=== PATIENT | female | born 1945 | race Caucasian/White ===

== ENCOUNTER 2019-02-20 14:43 | Inpatient (IN) | payer OTHER ==
[2019-02-20 15:42] LABS: PLATELET COUNT 347 10^3/uL (150-400)
--- NOTE | 2019-02-20 15:48 | EDPHY ---
H & P Stated Complaint: constipation Time Seen by Provider: 02/20/19 15:09 HPI/ROS: CHIEF COMPLAINT: Abdominal pain, vomiting HISTORY OF PRESENT ILLNESS: 73-year-old female presents from [facility]. Referred to the emergency department as the patient had vomiting x3 today and seemed to have abdominal discomfort palpation. No history of fevers. No history of diarrhea. Patient in fact has been constipated recently and caregivers have been increasing the Senokot that she has received. No other history is available from the patient herself. Son at bedside reports no history of abdominal surgeries, no history of diabetes , high blood pressure, kidney problems, liver problems, or or other chronic medical conditions except possibility of hypothyroidism REVIEW OF SYSTEMS: Review of systems is unobtainable from this patient because of altered mentation. PAST MEDICAL HISTORY: Dementia, hypothyroid, anxiety SOCIAL HISTORY: Lives at [facility]. Here with son. VITAL SIGNS Reviewed by me. GENERAL: Elderly female, slightly pale, thin. No obvious distress. HEENT: Atraumatic. Eyes: No icterus, no injection. Mouth: Dry mucous membranes. No erythema or lesions. Neck: supple with no adenopathy. LUNGS: Clear to auscultation bilaterally, no wheezes, rhonchi or rales. CARDIAC: Regular rate and rhythm, no rubs, murmurs or gallops. ABDOMEN: Soft, apparent tenderness in the epigastrium and suprapubic region. No distension. Normal bowel sounds. BACK: No CVA tenderness. EXTREMITIES: No trauma. No edema. Range of motion is normal throughout. NEURO: Alert, follows some simple commands, consolable with the son. Grossly nonfocal. SKIN: Warm and dry, no rash. PSYCHIATRIC: Unable to assess - Personal History Current Tetanus Diphtheria and Acellular Pertussis (TDAP): Unsure - Medical/Surgical History Hx Asthma: No Hx Chronic Respiratory Disease: No Hx Diabetes: No Hx Cardiac Disease: No Hx Renal Disease: No Hx Cirrhosis: No Hx Alcoholism: No Hx HIV/AIDS: No Hx Splenectomy or Spleen Trauma: No Other PMH: dementia, anal fistula - Social History Smoking Status: Unknown if ever smoked Constitutional: Initial Vital Signs Temperature (C) 36.9 C 02/20/19 15:29 Heart Rate 80 02/20/19 15:29 Respiratory Rate 16 02/20/19 15:29 Blood Pressure 128/69 H 02/20/19 15:29 O2 Sat (%) 93 02/20/19 15:29 O2 Delivery Mode Oxymizer O2 (L/minute) 10 Allergies/Adverse Reactions: No Known Allergies Allergy (Unverified 02/20/19 16:59) Home Medications: Medication Instructions Recorded Citalopram Hydrobromide 20 mg PO DAILY 02/20/19 [Citalopram HBr] Sennosides [Senna Lax] 3 ea PO BID 02/20/19 traZODone [traZODONE 50MG (*)] 50 mg PO HS 02/20/19 Medical Decision Making - Diagnostics Imaging Results: Imaging Impressions Abdomen/Pelvis CT 02/20/19 15:33 Impression: 1. Mild left hydronephrosis secondary to a 7 x 6 mm proximal left ureterolithiasis. 2. Multiple additional bilateral nephrolithiasis, at least 10 calyceal calculi in both kidneys and a string of calculi in the proximal right ureter extending for 2 cm, although no evidence of right hydronephrosis. 3. Cholelithiasis. 4. Constipation and fecal impaction without bowel obstruction. 5. Possible hepatic cysts, although indeterminate without intravenous contrast and consider follow-up abdominal ultrasound when the patient's medical condition permits. Attention: This CT examination is specifically designed to evaluate patients who are clinically suspected of having acute obstructive uropathy. This examination does not use radiographic contrast, and as such, provides only a limited evaluation of the abdomen, pelvis and retroperitoneum. If there is further clinical suspicion for pathological conditions other than obstructive uropathy, a complete CT evaluation of the abdomen and pelvis utilizing intravenous, oral, and rectal contrast should be considered. Findings and recommendations discussed with Emergency Department physician, Anabel Mckeon MD, at 1748 hour, 02/20/2019. Final report concurs with initial preliminary interpretation. ED Course/Re-evaluation: 73-year-old female with a history of advanced dementia, DNR, and a MOST form indicating comfort measures only, presents with a history of vomiting 3 times today an apparent abdominal pain. Patient had IV placed and labs were drawn. She has an elevated white count of 14,000, and electrolytes remarkable for potassium of 3.4 and a low phosphorus. Patient did undergo CT scan of the abdomen pelvis. This demonstrates multiple stones in the renal pelvis as well as an obstructing 7 x 8 mm stone on the left ureter at the level of L3. Patient also has multiple small stones stacked in the right ureter without obstructive features. Additionally, a large 7 x 6 cm stool ball is located in the rectum. I discussed the CT results at length with the family, including the who is now here in the emergency department. We discussed the patient's advanced directives. At this point to they would like to continue to treat her pain and discomfort with fluids, pain meds, and enema, and possible antibiotics. Urinalysis has not been obtained but we will check urine to ensure that the patient does not have an infected stone. Patient was admitted to the hospital for further evaluation treatment per Dr. Darling Zuniga. I did discuss the possibility of hospice referral and the family is open to this consideration. Differential Diagnosis: Differential diagnosis of the patient's abdominal pain and vomiting was considered including but not limited to gastroenteritis, gastritis, bowel obstruction, kidney stone, appendicitis, pancreatitis, diverticulitis, volvulus. Consult/Admit Bed Type: Dr. Darling Zuniga, [facility] surg - Data Points Laboratory Results: Laboratory Results 02/20/19 15:00 02/20/19 15:00 02/20/19 02/20/19 15:00 15:00 WBC 13.96 10^3/uL H 10^3/uL (3.80-9.50) RBC 4.87 10^6/uL 10^6/uL (4.18-5.33) Hgb 16.0 g/dL g/dL (12.6-16.3) Hct 45.5 % % (38.0-47.0) MCV 93.4 fL fL (81.5-99.8) MCH 32.9 pg pg (27.9-34.1) MCHC 35.2 g/dL g/dL (32.4-36.7) RDW 12.3 % % (11.5-15.2) Plt Count 347 10^3/uL 10^3/uL (150-400) MPV 10.6 fL fL (8.7-11.7) Neut % (Auto) 87.5 % H % (39.3-74.2) Lymph % (Auto) 6.9 % L % (15.0-45.0) [place] % (Auto) 4.8 % % (4.5-13.0) Eos % (Auto) 0.0 % L % (0.6-7.6) Baso % (Auto) 0.2 % L % (0.3-1.7) Nucleat RBC Rel Count 0.0 % % (0.0-0.2) Absolute Neuts (auto) 12.22 10^3/uL H 10^3/uL (1.70-6.50) Absolute Lymphs (auto) 0.96 10^3/uL L 10^3/uL (1.00-3.00) Absolute Monos (auto) 0.67 10^3/uL 10^3/uL (0.30-0.80) Absolute Eos (auto) 0.00 10^3/uL L 10^3/uL (0.03-0.40) Absolute Basos (auto) 0.03 10^3/uL 10^3/uL (0.02-0.10) Absolute Nucleated RBC 0.00 10^3/uL 10^3/uL (0-0.01) Immature Gran % 0.6 % % (0.0-1.1) Immature Gran # 0.08 10^3/uL 10^3/uL (0.00-0.10) Sodium 141 mEq/L mEq/L (135-145) Potassium 3.4 mEq/L L mEq/L (3.5-5.2) Chloride 104 mEq/L mEq/L (97-110) Carbon Dioxide 27 mEq/l mEq/l (22-31) Anion Gap 10 mEq/L mEq/L (6-14) BUN 11 mg/dL mg/dL (7-23) Creatinine 0.6 mg/dL mg/dL (0.6-1.0) Estimated GFR > 60 Glucose 131 mg/dL H mg/dL (70-100) Calcium 11.4 mg/dL H mg/dL (8.5-10.4) Phosphorus 2.3 mg/dL L mg/dL (2.5-4.5) Total Bilirubin 0.8 mg/dL mg/dL (0.1-1.4) Conjugated Bilirubin 0.1 mg/dL mg/dL (0.0-0.5) Unconjugated Bilirubin 0.7 mg/dL mg/dL (0.0-1.1) AST 29 IU/L IU/L (14-46) ALT 30 IU/L IU/L (9-52) Alkaline Phosphatase 67 IU/L IU/L (38-126) Total Protein 6.6 g/dL g/dL (6.3-8.2) Albumin 4.0 g/dL g/dL (3.5-5.0) Lipase 33 IU/L IU/L (23-300) Medications Given: Sodium Chloride (Ns) 1,000 mls @ 100 mls/hr IV CONT CHERELLE Stop: 08/19/19 18:29 Last Admin: 02/20/19 22:39 Dose: 1,000 mls Senna/Docusate Sodium (Senokot-S) 1 - 2 tab PO BID CHERELLE PRN Reason: Protocol Stop: 08/19/19 20:59 Last Admin: 02/20/19 22:43 Dose: 1 tab Tamsulosin HCl (Flomax) 0.4 mg PO DAILY CHERELLE Stop: 08/19/19 18:29 Last Admin: 02/20/19 22:43 Dose: 0.4 mg Trazodone HCl (Trazodone) 50 mg PO HS CHERELLE Stop: 08/19/19 20:59 Last Admin: 02/20/19 22:43 Dose: 50 mg Discontinued Medications Fentanyl (Sublimaze) 25 mcg IVP EDNOW ONE Stop: 02/20/19 15:36 Last Admin: 02/20/19 18:02 Dose: 25 mcg Sodium Chloride (Ns) 1,000 mls @ 0 mls/hr IV ONCE ONE; Wide Open PRN Reason: Protocol Stop: 02/20/19 17:52 Last Admin: 02/20/19 18:03 Dose: 1,000 mls Midazolam HCl (Versed) 1 mg IVP EDNOW ONE Stop: 02/20/19 15:35 Last Admin: 02/20/19 18:03 Dose: 1 mg Departure - Departure Disposition: [facility] Clinical Impression: Renal colic on left side Constipation Qualifiers: Constipation type: unspecified constipation type Qualified Code(s): K59.00 - Constipation, unspecified Vomiting Qualifiers: Vomiting type: unspecified Vomiting Intractability: non-intractable Nausea presence: unspecified Qualified Code(s): R11.10 - Vomiting, unspecified Condition: Fair
[2019-02-20] MEDS ORDERED: IOPAMIDOL (ISOVUE-300) 100 ML BTL ONE (16:30)
[2019-02-20] MEDS: fentaNYL 100 MCG/2 ML INJ IVP ONE ×2 (17:02→18:02)
[2019-02-20] MEDS: MIDAZOLAM 2 MG/2 ML VIAL IVP ONE ×2 (17:02→18:03)
[2019-02-20] MEDS ORDERED: NS 1,000 ML IV ONE (17:51)
[2019-02-20] MEDS ORDERED: oxyCODONE IR 5 MG TAB PO PRN (18:25)
[2019-02-20] MEDS ORDERED: PROMETHAZINE HCL 25 MG/ML INJ IVP PRN (18:25)
[2019-02-20] MEDS ORDERED: ONDANSETRON DISINTEGRATING 4 MG TAB PO PRN (18:25)
[2019-02-20] MEDS ORDERED: ONDANSETRON 4 MG/2 ML VIAL IVP PRN (18:25)
[2019-02-20] MEDS ORDERED: ACETAMINOPHEN 325 MG TAB PO PRN (18:25)
[2019-02-20] MEDS ORDERED: MAGNESIUM HYDROXIDE 30 ML UDCUP PO PRN (18:27)
[2019-02-20] MEDS ORDERED: BISACODYL 10 MG SUPP PR PRN (18:27)
[2019-02-20] MEDS ORDERED: LACTULOSE 20 GM/30 ML UDCUP PO PRN (18:27)
[2019-02-20] MEDS ORDERED: HALOPERIDOL LACT 5 MG/ML INJ IVP PRN (18:30)
--- NOTE | 2019-02-20 18:31 | PDGENHP ---
History and Physical - Chief Complaint abdominal pain - History of Present Illness 73 yo F with PMH of dementia and hypothyroid presenting with her and son from [facility] with new onset of abdominal pain. Patient is essentially non verbal at baseline per family, and today at the [facility] unit was noted to be curled up in a ball and holding her abdomen, crying in pain. Family notes that other than that they do not really know what is going on with her, but that she does not usually behave in that way. She does have a MOST form indicating that she would like mostly only comfort measures, but antibiotics and other medications are ok. They note she struggles with chronic constipation. In the ER on abdominal imaging it was found that she has severe constipation with an impacted rectum as well as bilateral kidney stones and a 7 x 6 mm proximal ureteral stone on the left with mild hydro and multiple ureteral stones on the right without obstruction. History Information - Allergies/Home Medication List Allergies/Adverse Reactions: No Known Allergies Allergy (Unverified 02/20/19 16:59) Home Medications: Citalopram Hydrobromide [Citalopram HBr] 20 mg PO DAILY 02/20/19 [Last Taken ] Sennosides [Senna Lax] 3 ea PO BID 02/20/19 [Last Taken 02/20/19 07:00] traZODone [traZODONE 50MG (*)] 50 mg PO HS 02/20/19 [Last Taken 02/19/19] I have personally reviewed and updated: family history, medical history, social history, surgical history - Past Medical History dementia, psychiatric history (anxiety) Additional medical history: hypothyroid - Surgical History Reports: no pertinent surgical hx - Family History Positive for: non-pertinent - Social History Smoking Status: Unknown if ever smoked Alcohol Use: None Drug Use: None Additional social history: , lives at [facility] Review of Systems Review of Systems: unobtainable 2/2 patients mental status Physical Exam Physical Exam: Temp Pulse Resp BP Pulse Ox 36.9 C 78 16 92/51 L 96 02/20/19 15:29 02/20/19 17:52 02/20/19 17:52 02/20/19 17:52 02/20/19 17:52 Constitutional: chronically ill appearing, cachectic Eyes: anicteric sclera Ears, Nose, Mouth, Throat: poor dentition, dry mucous membranes Cardiovascular: regular rate and rhythym, no murmur, rub, or gallop, No edema Respiratory: no respiratory distress, no rales or rhonchi Gastrointestinal: tenderness, distension, No guarding, No rebound Genitourinary: no bladder tenderness Skin: warm, normal color Musculoskeletal: full muscle strength Neurologic: No AAOx3 Psychiatric: poor memory, other (severe dementia, limited verbal interaction) Lab Data & Imaging Review 02/20/19 15:00 02/20/19 15:00 WBC 13.96 10^3/uL (3.80-9.50) H 02/20/19 15:00 RBC 4.87 10^6/uL (4.18-5.33) 02/20/19 15:00 Hgb 16.0 g/dL (12.6-16.3) 02/20/19 15:00 Hct 45.5 % (38.0-47.0) 02/20/19 15:00 MCV 93.4 fL (81.5-99.8) 02/20/19 15:00 MCH 32.9 pg (27.9-34.1) 02/20/19 15:00 MCHC 35.2 g/dL (32.4-36.7) 02/20/19 15:00 RDW 12.3 % (11.5-15.2) 02/20/19 15:00 Plt Count 347 10^3/uL (150-400) 02/20/19 15:00 MPV 10.6 fL (8.7-11.7) 02/20/19 15:00 Neut % (Auto) 87.5 % (39.3-74.2) H 02/20/19 15:00 Lymph % (Auto) 6.9 % (15.0-45.0) L 02/20/19 15:00 Yell % (Auto) 4.8 % (4.5-13.0) 02/20/19 15:00 Eos % (Auto) 0.0 % (0.6-7.6) L 02/20/19 15:00 Baso % (Auto) 0.2 % (0.3-1.7) L 02/20/19 15:00 Nucleat RBC Rel Count 0.0 % (0.0-0.2) 02/20/19 15:00 Absolute Neuts (auto) 12.22 10^3/uL (1.70-6.50) H 02/20/19 15:00 Absolute Lymphs (auto) 0.96 10^3/uL (1.00-3.00) L 02/20/19 15:00 Absolute Monos (auto) 0.67 10^3/uL (0.30-0.80) 02/20/19 15:00 Absolute Eos (auto) 0.00 10^3/uL (0.03-0.40) L 02/20/19 15:00 Absolute Basos (auto) 0.03 10^3/uL (0.02-0.10) 02/20/19 15:00 Absolute Nucleated RBC 0.00 10^3/uL (0-0.01) 02/20/19 15:00 Immature Gran % 0.6 % (0.0-1.1) 02/20/19 15:00 Immature Gran # 0.08 10^3/uL (0.00-0.10) 02/20/19 15:00 Sodium 141 mEq/L (135-145) 02/20/19 15:00 Potassium 3.4 mEq/L (3.5-5.2) L 02/20/19 15:00 Chloride 104 mEq/L (97-110) 02/20/19 15:00 Carbon Dioxide 27 mEq/l (22-31) 02/20/19 15:00 Anion Gap 10 mEq/L (6-14) 02/20/19 15:00 BUN 11 mg/dL (7-23) 02/20/19 15:00 Creatinine 0.6 mg/dL (0.6-1.0) 02/20/19 15:00 Estimated GFR > 60 02/20/19 15:00 Glucose 131 mg/dL (70-100) H 02/20/19 15:00 Calcium 11.4 mg/dL (8.5-10.4) H 02/20/19 15:00 Phosphorus 2.3 mg/dL (2.5-4.5) L 02/20/19 15:00 Total Bilirubin 0.8 mg/dL (0.1-1.4) 02/20/19 15:00 Conjugated Bilirubin 0.1 mg/dL (0.0-0.5) 02/20/19 15:00 Unconjugated Bilirubin 0.7 mg/dL (0.0-1.1) 02/20/19 15:00 AST 29 IU/L (14-46) 02/20/19 15:00 ALT 30 IU/L (9-52) 02/20/19 15:00 Alkaline Phosphatase 67 IU/L (38-126) 02/20/19 15:00 Total Protein 6.6 g/dL (6.3-8.2) 02/20/19 15:00 Albumin 4.0 g/dL (3.5-5.0) 02/20/19 15:00 Lipase 33 IU/L (23-300) 02/20/19 15:00 Visualized and Interpreted imaging results: Yes Interpretation: abd/pelvis CT: constipation, fecal impaction; left sided prox ureter stone with mild hydro, multiple small right ureteral stones w/o hydro; cholelithiasis Assessment & Plan Assessment: 73 yo F with PMH of dementia and hypothyroid pw abd pain found to have ureterolithiasis and severe constipation/fecal impaction # constipation/fecal impaction: severe, plan by nursing to manually disimpact and then give an enema, bowel protocol also ordered. Suspect patient will require several treatments to improve this. # ureterolithiasis/mild hydro: patient with 7x 6 mm proximal ureteral stone with associated mild hydro. Discussed with family at length, and given her goals of care, they would very much like to avoid any type of surgical intervention, including minimally invasive procedures such as ureteral stent. Will start IVF, flomax, strain urine and monitor overnight. Suspect her abdominal pain was multifactorial, 2/2 above as well as ureteral stents. If pain does not improve after BM, would need to consider urology consult in the am if family would consider that. # abdominal pain: presumably due to both issues as above, she remains slightly tender but not severe currently, as above, if pain does not improve overnight to the point where she can dc back to memory care, would need to consider addressing the ureteral stones # dementia: severe, patient only minimally verbal at baseline, where she resides is a memory care unit and does not provide long-term which was working previously but with unmanaged pain is not an option. Family notes she does become agitated at night if she is in a strange place, and they would like us to keep her in a 'twilight state' such as she was for CT or else she may pose a danger to herself--explained why that is not possible, but haldol prn ordered # hypothyroid: reported as a medical issue for her, but no thyroid meds on her home med list, will check tsh, possibly contributing to severe constipation # DNR # IP status, suspect she will require > 48 hours stay for eval/mgmt of above Patient new to my care. Old records reviewed and summarized as above. Care plan reviewed with ER doctor and further hx obtained from patients family present at bedside.
--- NOTE | 2019-02-20 19:40 | PDMN ---
Medical Necessity Medical necessity: Pt meets IP criteria per MD & MCG M-320; est los >2 mn for eval/tx of multiple kidney stones w/vomiting, abdominal pain & fecal impaction; admit for further monitoring, IVFs, Flomax, bowel protocol & possible Urology consult; hx dementia (essentially non-verbal); per H&P & order 02/20/19
[2019-02-20] MEDS ORDERED: SENNOSIDES 1 TAB PO SCH (21:00)
[2019-02-20] MEDS: NS 1,000 ML IV SCH (22:39)
[2019-02-20] MEDS: TAMSULOSIN HCL 0.4 MG CAP PO SCH (22:43)
[2019-02-20] MEDS: traZODone 50 MG TAB PO SCH (22:43)
[2019-02-20] MEDS: SENNOSIDES/DOCUSATE SODIUM TAB PO SCH (22:43)
[2019-02-21] MEDS: HYDROmorphONE/DILAUDID 1 MG/ML INJ IVP PRN (08:37)
[2019-02-21] MEDS: CITALOPRAM 20 MG TAB PO SCH (09:22)
[2019-02-21] MEDS: SENNOSIDES/DOCUSATE SODIUM TAB PO SCH ×2 (09:22→21:55)
[2019-02-21] MEDS: TAMSULOSIN HCL 0.4 MG CAP PO SCH (09:22)
[2019-02-21] MEDS: NS 1,000 ML IV SCH ×2 (09:23→16:58)
[2019-02-21 09:42] LABS: PLATELET COUNT 266 10^3/uL (150-400)
--- NOTE | 2019-02-21 10:56 | ASMTCMCOM ---
CM Note CM Note Notes: Patient admitted w abd pain. Imaging showed severe fecal impaction/constipation + a ureteral stone. She has severe dementia and lives at [facility]. Per her family (husb Donte and son Oswaldo), she has chronic constipation issues. She is also minimally communicative at baseline. Her MOST form indicates a desire for mostly comfort measures and some medications. The possibility of a ureteral stent was mentioned to family and they are hesitant to consider this, as well. Urology consult pending. Case Management will follow. Date Signed: 02/21/2019 10:55 AM Electronically Signed By:Marilyn Munroe RN
--- NOTE | 2019-02-21 12:02 | HOSPPROG ---
Hospitalist Progress Note Assessment/Plan: 73 yo F with PMH of advanced dementia and hypothyroid presented with abd pain found to have ureterolithiasis and severe constipation/fecal impaction. #Ureterolithiasis, mild left hydronephrosis: 6x7mm stone. still having abd pain and creatinine worsening - consulted urology who will d/w with family re: potential intervention - continue IV fluids, flomax, strain urine #Acute kidney injury: possibly r/t obstruction but only unilateral - bladder scan w/only 125ml - checking urine lytes - continue fluids #Severe constipation: now s/p fecal impaction and doing better - continue bowel regimen, likely wouldn't tolerate enema #Abdominal pain: presumably d/t both issues above. non-peritoneal abdomen - continue pain meds as prescribed #Dementia: minimally verbal at baseline. resides at memory care unit #? hypothyroid: not on thyroid replacement. checking tsh Code: DNR. Per family, pt would very much like to avoid any type or surgical intervention if at all possible. Dispo: remain inpatient Subjective: Had episode of intense pain around 8am this morning. Now more comfortable after IV dilaudid. Patinet mostly non-verbal. D/w son. Objective: Vital Signs Temp Pulse Resp BP Pulse Ox 36.8 C 80 16 110/57 L 99 02/21/19 08:00 02/21/19 08:00 02/21/19 08:00 02/21/19 08:00 02/21/19 08:00 Laboratory Results 02/21/19 09:06 02/21/19 09:06 02/20/19 02/21/19 02/22/19 05:59 05:59 05:59 Intake Total 2276 100 Balance 2276 100 - Physical Exam Constitutional: no apparent distress, appears nourished, not in pain Eyes: PERRL, anicteric sclera, EOMI Ears, Nose, Mouth, Throat: moist mucous membranes, hearing normal, ears appear normal, no oral mucosal ulcers Cardiovascular: regular rate and rhythym, no murmur, rub, or gallop Respiratory: no respiratory distress, no rales or rhonchi, clear to auscultation Gastrointestinal: tenderness (diffusely), distension, other (hypoactive bowel sounds), No guarding, No rebound Genitourinary: no bladder fullness, no bladder tenderness, no renal bruits Skin: no rashes or abrasions, no fluctuance, no induration Musculoskeletal: generalized weakness Neurologic: other (alert, not oriented) Psychiatric: encephalopathic ICD10 Worksheet Patient Problems: Problems Problem Status Onset Constipation Acute Renal colic on left side Acute Vomiting Acute
--- NOTE | 2019-02-21 16:02 | SOAPPROG ---
SOAP Progress Note Assessment/Plan: Assessment: Bilateral nephrolithiasis Acute discussed with son and plan on rx of left side initially Constipation Acute resolved with disempaction Renal colic on left side Acute ureteral stone and hydronephrosis, nephrolithiasis noted Vomiting Acute related to the above Cholelithiasis Acute ? contribution to abdominal pain questionable Plan: discussed options of rx of stone findings and plan for left ureteroscopy and stone removal and if possible rx of renal stones 45 minutes spent in assessment, review of all of the medical record, discussion with son and scheduling procedure for tomorrow 02/21/19 16:03 Subjective: pain Objective: Vital Signs Temp Pulse Resp BP Pulse Ox 36.8 C 80 16 110/57 L 99 02/21/19 08:00 02/21/19 08:00 02/21/19 08:00 02/21/19 08:00 02/21/19 08:00 Laboratory Results 02/21/19 09:06 02/21/19 09:06 02/20/19 02/21/19 02/22/19 05:59 05:59 05:59 Intake Total 2276 300 Output Total 250 Balance 2276 50 Physical Exam - Physical Exam General Appearance: no apparent distress Respiratory: No respiratory distress Abdomen: soft Back: CVA tenderness (left) Skin: warm/dry Neuro/Psych: other (dementia noted) ICD10 Worksheet Patient Problems: Problems Problem Status Onset Bilateral nephrolithiasis Acute Constipation Acute Renal colic on left side Acute Vomiting Acute - ICD10 Problem Qualifiers (1) Bilateral nephrolithiasis
[2019-02-21] MEDS: POLYETHYLENE GLYCOL 3350 17 GM PKT PO PRN (16:50)
[2019-02-21] MEDS: traZODone 50 MG TAB PO SCH (21:55)
[2019-02-22] MEDS: TAMSULOSIN HCL 0.4 MG CAP PO SCH (08:49)
[2019-02-22] MEDS: CITALOPRAM 20 MG TAB PO SCH ×2 (08:49→18:19)
[2019-02-22] MEDS: POLYETHYLENE GLYCOL 3350 17 GM PKT PO PRN ×2 (08:49→18:19)
[2019-02-22] MEDS: SENNOSIDES/DOCUSATE SODIUM TAB PO SCH ×3 (08:49→20:35)
[2019-02-22] MEDS ORDERED: LORazepam 2 MG/ML INJ IVP ONE (10:01)
--- NOTE | 2019-02-22 10:02 | HOSPPROG ---
Hospitalist Progress Note Assessment/Plan: 73 yo F with PMH of advanced dementia presented with abd pain found to have ureterolithiasis and severe constipation/fecal impaction. #Ureterolithiasis, mild left hydronephrosis: 6x7mm stone - urology consulted, planning on L ureteroscopy and stone removal this afternoon - continue IV fluids, flomax, strain urine #PETER likely 2/2 obstructive uropathy - recheck labs (unable to obtain this AM, planning on doing this during procedure) #Severe constipation: s/p fecal disimpaction - continue bowel regimen #Abdominal pain: presumably d/t both issues above. non-peritoneal abdomen - continue pain meds prn #Dementia: minimally verbal at baseline. resides at memory care unit #? hypothyroid: not on thyroid replacement. tsh ok Code: DNR Dispo: remain inpatient, possibly dc back to [facility] unit tomorrow if procedure goes well, pain controlled, Cr better, and passing flatus Subjective: Doing well today. No dilaudid since yesterday AM. No flatus or BM. Objective: Vital Signs Temp Pulse Resp BP Pulse Ox 36.6 C 76 16 103/67 93 02/22/19 08:53 02/22/19 08:53 02/22/19 08:53 02/22/19 08:53 02/22/19 08:53 Laboratory Results 02/21/19 09:06 02/21/19 09:06 02/21/19 02/22/19 02/23/19 05:59 05:59 05:59 Intake Total 2276 2729 Output Total 250 Balance 2276 2479 - Physical Exam Constitutional: no apparent distress, appears nourished, not in pain Eyes: PERRL, anicteric sclera, EOMI Ears, Nose, Mouth, Throat: moist mucous membranes, hearing normal, ears appear normal, no oral mucosal ulcers Cardiovascular: regular rate and rhythym, no murmur, rub, or gallop Respiratory: no respiratory distress, no rales or rhonchi, clear to auscultation Gastrointestinal: distension, other (decreased bowel sounds), No tenderness Genitourinary: no bladder fullness, no bladder tenderness, no renal bruits Skin: no rashes or abrasions, no fluctuance, no induration Musculoskeletal: full muscle strength, no muscle tenderness, normal joint ROM Neurologic: other (alert, not oriented) Psychiatric: encephalopathic ICD10 Worksheet Patient Problems: Problems Problem Status Onset Bilateral nephrolithiasis Acute Constipation Acute Renal colic on left side Acute Vomiting Acute
--- NOTE | 2019-02-22 14:35 | PDHPUP ---
History & Physical Update H&P update statement: This history and physical update is based on an assessment of the patient which was completed after admission or registration (within 24 hours), but prior to the surgery/procedure. H&P update: H&P reviewed & patient examined, no change in patient's condition since H&P completed
[2019-02-22] MEDS ORDERED: LIDOCAINE 2% JELLY 20 ML (UROJECT) ONE (15:40)
[2019-02-22] MEDS ORDERED: IOPAMIDOL (ISOVUE-M 200) 20 ML VIAL ONE (15:41)
--- NOTE | 2019-02-22 15:57 | PDANEPAE ---
ANE History of Present Illness ureteroscopy ANE Past Medical History - Cardiovascular History Hx Hypertension: No Hx Arrhythmias: No Hx Chest Pain: No Hx Coronary Artery / Peripheral Vascular Disease: No Hx CHF / Valvular Disease: No Hx Palpitations: No - Pulmonary History Hx COPD: No Hx Asthma/Reactive Airway Disease: No Hx Recent Upper Respiratory Infection: No Hx Oxygen in Use at Home: No Hx Sleep Apnea: No Sleep Apnea Screening Result - Last Documented: Negative - Neurologic History Hx Cerebrovascular Accident: No Hx Seizures: No Hx Dementia: Yes - Endocrine History Hx Diabetes: No Hypothyroid: Yes Hyperthyroid: No - Renal History Hx Renal Disorders: No - Liver History Hx Hepatic Disorders: No ANE Review of Systems Review of Systems: - Exercise capacity Exercise capacity: <4 METS, limited by disability ANE Patient History - Allergies Allergies/Adverse Reactions: No Known Allergies Allergy (Unverified 02/20/19 16:59) - Home Medications Home Medications: Citalopram Hydrobromide [Citalopram HBr] 20 mg PO DAILY 02/20/19 [Last Taken ] Sennosides [Senna Lax] 3 ea PO BID 02/20/19 [Last Taken 02/20/19 07:00] traZODone [traZODONE 50MG (*)] 50 mg PO HS 02/20/19 [Last Taken 02/19/19] - NPO status NPO Status: no food or drink >8 hours NPO Since - Liquids (Date): 02/22/19 NPO Since - Liquids (Time): 00:00 NPO Since - Solids (Date): 02/22/19 NPO Since - Solids (Time): 00:00 - Anes Hx Anes Hx: no prior problems - Smoking Hx Smoking Status: Unknown if ever smoked - Alcohol Use Alcohol Use: None ANE Labs/Vital Signs - Labs Result Diagrams: 02/21/19 09:06 02/21/19 09:06 - Vital Signs Blood Pressure: 103/67 Heart Rate: 76 Respiratory Rate: 16 O2 Sat (%): 93 Height: 152 cm Weight: 42.6 kg ANE Physical Exam - Airway Mallampati Score: Class 2 Mouth exam: normal dental/mouth exam - Pulmonary Pulmonary: no respiratory distress - Cardiovascular Cardiovascular: regular rate and rhythym - ASA Status ASA Status: III ANE Anesthesia Plan Anesthesia Plan: GA w LMA
[2019-02-22] MEDS ORDERED: MIDAZOLAM 2 MG/2 ML VIAL ONE (15:58)
[2019-02-22] MEDS ORDERED: MIDAZOLAM 2 MG/2 ML VIAL IVP ONE (15:58)
[2019-02-22] MEDS ORDERED: fentaNYL 100 MCG/2 ML INJ ONE (16:05)
[2019-02-22] MEDS ORDERED: PROPOFOL 200 MG/20 ML VIAL ONE (16:06)
[2019-02-22] MEDS ORDERED: LIDOCAINE 2% 2 ML INJ ONE ×2 (16:06)
[2019-02-22] MEDS ORDERED: DEXAMETHASONE 4 MG/ML VIAL ONE (16:06)
[2019-02-22] MEDS ORDERED: ceFAZolin 1 GM VIAL ONE ×2 (16:13→16:17)
[2019-02-22] MEDS ORDERED: ceFAZolin 2 GM/DEXTROSE 100 ML IV ONE ×2 (16:16)
--- NOTE | 2019-02-22 16:16 | POSTOPPROG ---
Post Op Note Date of Operation: 02/22/19 (dictated) Surgeon: Noel Shafer Anesthesiologist: Josemanuel Anesthesia: LMA Pre-op Diagnosis: ureterolithiasis / Nephrolithiasis Procedure: ureteroscopy rx ureteral stone and renal stones separately Inf/Abcess present in the surg proc area at time of surgery?: No EBL: Minimal Drains: Other (stent)
[2019-02-22] MEDS ORDERED: ePHEDrine SULFATE 25 MG/5 ML SYR ONE (16:31)
[2019-02-22] MEDS ORDERED: ONDANSETRON 4 MG/2 ML VIAL ONE (16:45)
[2019-02-22] MEDS ORDERED: fentaNYL 100 MCG/2 ML INJ IVP PRN (17:26)
[2019-02-22] MEDS ORDERED: ALBUTEROL 3 ML DEYVIAL IH PRN (17:26)
[2019-02-22] MEDS ORDERED: NALOXONE HCL 0.4 MG/ML INJ IVP PRN (17:26)
[2019-02-22] MEDS ORDERED: ONDANSETRON 4 MG/2 ML VIAL IVP PRN (17:26)
--- NOTE | 2019-02-22 17:27 | POSTANESTH ---
Post Anesthetic Evaluation Cardiovascular Status: Normal, Stable Respiratory Status: Normal, Stable Level of Consciousness/Mental Status: Other, See Comment (similar to pre-op condition) Pain Control: Adequate, Prn Tx Ordered Nausea/Vomiting Control: Adequate, Prn Tx Ordered Complications Possibly Related to Anesthesia: None Noted
[2019-02-22] MEDS: HYDROmorphONE/DILAUDID 1 MG/ML INJ IVP PRN (19:32)
--- NOTE | 2019-02-22 19:54 | GOP ---
[f rep st] OPERATIVE REPORT DATE OF OPERATION: 02/22/2019 SURGEON: Noel Shafer MD PREOPERATIVE DIAGNOSIS: Ureterolithiasis, nephrolithiasis of the left side, with bilateral nephrolit hiasis. POSTOPERATIVE DIAGNOSIS: Ureterolithiasis, nephrolithiasis of the left side, with bilateral nephroli thiasis. PROCEDURE PERFORMED: Left-sided retrograde ureteral pyelogram with laser lithotripsy of ureteral domenica culus with a semi-rigid scope and then with a flexible video scope I did laser treatment of multiple kidney stones and calices and then placement of ureteral stent. FINDINGS: SPECIMENS: None. ESTIMATED BLOOD LOSS: Less than 10 mL. At the end of the procedure, I did place a Uro-jet after emptying her bladder and fluoroscopy confirm ed a curl in the renal pelvis and a curl in the bladder other than the stent. DESCRIPTION OF PROCEDURE: This lady underwent general anesthesia by Dr. Abernathy. Prepped and draped in normal sterile fashion. After appropriate time-out, she had her urethra dilated because of stenos is and then the left ureteral orifice was cannulated. It revealed a mid ureteral stone. I was able to pass a guidewire up into the renal pelvis and then ureteral access sheath was passed. The inner w orking lumen was passed up to the stone. I was able to take the semi-rigid scope and fragment it int o multiple pieces. After the pieces were fragmented, they floated to the kidney. At that point, I p assed a guidewire up into the kidney under fluoroscopy, so there were 2 wires, and then I was able to pass the video flexible ureteroscope up into the kidney and visualized each calyx and there were 4 a dditional stones identified in the kidney and calices that were fragmented. They were pulverized in small amounts. Where the stone was impacted, that was inflamed, so I elected not to attempt to pull it because of the need for manipulation of the ureter multiple times because of the bulk of the stone s and the ureteral edema. I elected to place a stent, even though the son had requested that we not. I left a string on the stent, so if it pulls out inadvertently we will not have to undergo endoscop ic removal of the stent. She tolerated procedure well and she will be admitted for postoperative car e. I will discuss the findings with her son. COMPLICATIONS: None. /[id number]/MODL
[2019-02-22] MEDS: traZODone 50 MG TAB PO SCH (20:34)
[2019-02-22] MEDS: HYDROCODONE/APAP 5/325 TAB PO PRN (20:35)
[2019-02-23] MEDS: HYDROCODONE/APAP 5/325 TAB PO PRN (07:45)
[2019-02-23] MEDS: TAMSULOSIN HCL 0.4 MG CAP PO SCH (08:52)
[2019-02-23] MEDS: CITALOPRAM 20 MG TAB PO SCH (08:52)
[2019-02-23] MEDS: SENNOSIDES/DOCUSATE SODIUM TAB PO SCH (09:04)
[2019-02-23 09:30] VITALS: BP 134/64
--- NOTE | 2019-02-23 14:26 | SOAPPROG ---
SOAP Progress Note Assessment/Plan: Assessment: Bilateral nephrolithiasis Acute discussed with son and plan on rx of left side initially Constipation Acute resolved with disempaction Renal colic on left side Acute ureteral stone and hydronephrosis, nephrolithiasis noted Vomiting Acute related to the above Cholelithiasis Acute ? contribution to abdominal pain questionable Plan: POD # 1, stent partially pulled and pt incontinent, plan for RN to remove stent, pt in sitting position and could not access for pulling 02/23/19 14:23 Subjective: Pain, incontinent Objective: Vital Signs Temp Pulse Resp BP Pulse Ox 36.7 C 86 14 134/64 H 94 02/23/19 08:00 02/23/19 08:00 02/23/19 00:00 02/23/19 08:00 02/23/19 08:00 Laboratory Results 02/21/19 09:06 02/21/19 09:06 02/22/19 02/23/19 02/24/19 05:59 05:59 05:59 Intake Total 2729 1000 Output Total 250 Balance 2479 1000 Physical Exam - Physical Exam General Appearance: alert Pelvic Exam: other (stent out in pad partially, have RN complete removal when in bed) ICD10 Worksheet Patient Problems: Problems Problem Status Onset Bilateral nephrolithiasis Acute Constipation Acute Renal colic on left side Acute Vomiting Acute - ICD10 Problem Qualifiers (1) Bilateral nephrolithiasis
--- NOTE | 2019-02-23 15:13 | PDDCSUM ---
Discharge Summary Discharge Summary: Date of Admission: 02/20/2019 Date of Discharge: 02/23/2019 Consultants: urology (Dr Peter Shafer) Procedures: Left sided retrograde ureteral pyelogram with laser lithotripsy of ureteral calculus; laser treatment of multiple kidney stones; placement of left ureteral stent Studies: CT abdomen/pelvis Discharge Diagnoses: 1. Symptomatic left sided ureterolithiasis 2. Left hydronephrosis 3. Multiple bilateral smaller kidney stones 4. Severe constipation, fecal impaction 5. Abdominal pain related to above 6. PETER 2/2 obstructive uropathy 7. Dementia Brief Hospital Course: 73 yo F with PMH of advanced dementia presented with abdominal pain. She was found to have severe constipation/fecal impaction as well as multiple bilateral nephrolithiasis with a 7x6mm proximal left ureteral stone leading to mild left hydronephrosis. She was started on IV fluids and flomax. Her creatinine bumped from 0.6 to 1.2. Urology was consulted and they performed left ureteroscopy with laser lithotripsy of the large stone and also pulverized several smaller stones in the kidney and calyx. A ureteral stent was placed to help facilitate passing of these stones; however, the patient ended up partially removing the stent. The stent was fully removed prior to discharge. Her pain was well controlled with [place]. I suspect she may have paroxysms of pain while passing these stones however this should be able to be managed in the outpatient setting. She did not have evidence of urinary infection/pyelonephritis. Her renal function presumably was improving with removal of the obstruction; however , we were unable to obtain repeat labs as the patient refused additional blood work. She was making adequate urine. Regarding her severe constipation, she was manually disimpacted. She was started on a bowel regimen with a laxative and stool softener. She has significant dementia. Her family is involved in her care. She was previously living in a memory care unit and was discharged to [facility] for ongoing PT/OT and RN care. Medications: Please refer to EMR for complete list. Follow Up Plan: Recommend usual care per primary care provider. She does not need to follow up with urology unless further issues arise with the kidney stones. Physical Exam: Vitals reviewed, afebrile. Alert but not oriented, no focal neurologic deficits, rrr, lungs clear, abdomen soft and nt, no leg edema, no rashes.
--- NOTE | 2019-02-23 15:13 | PDIAF ---
- Diagnosis Code Status: Do Not Resuscitate - Medication Management Discharge Medications: electronically signed and located in the Home Medication List. PICC Care - Routine: N/A - Orders Services needed: Registered Nurse, Physical Therapy, Occupational Therapy [place]: Not applicable Additional Instructions: You had laser lithotripsy to a large left sided ureteral stone. You also had some smaller kidney stones that were manually broken up. You briefly had a ureteral stent placed and this was removed prior to discharge. I have put as-needed Marquez on your medication list. I recommend trying tylenol or ibuprofen first for pain; however, if this isn't working, you can then try the Marquez. I have also added as-needed Miralax and Lactulose to your medication regimen. Continue to use your senna as well. - Follow Up Care Current Providers and Referrals: Patient,NotPresent [Unknown] - As per Instructions
--- NOTE | 2019-02-23 15:35 | ASMTDCNOTE ---
Case Management Discharge Discharge Order Complete? Answers: Yes Patient to Obtain Answers: [facility] Transportation Arranged Answers: Other Notes: [facility] will Pick (Date 02/23/2019 04:15 AM & Time) Faxed Final Orders Answers: Yes Agency/Facility Transfer Answers: Yes Report Printed & Faxed to Receiving Agency Family Notified Answers: Yes Discharge Comments Notes: Pt is discharging to [facility] today. D/C order, meds, facility transfer sent via [employer]. [facility] transporting. Date Signed: 02/23/2019 03:34 PM Electronically Signed By:KARO Bruce
--- NOTE | 2019-02-23 15:36 | ASDISCHSUM ---
Discharge Information Plan Status:SNF Medically Cleared to Leave:02/23/2019 Discharge Date:02/23/2019 CM D/C Disposition:Assisted Facility ADT D/C Disposition:Assisted Facility Projected Discharge Date:02/23/2019 11:00 AM Transportation at D/C:Wheelchair Van Discharge Delay Reason: Follow-Up Date:02/23/2019 11:00 AM Discharge Slot: Final Diagnosis: Placement Information Referral Type:Assisted Living Residence Referral ID:[id number] Provider Name: Address 1: Phone Number: Address 2: Fax Number: City: Selection Factors: State: Referral Type:*Residential/SNF Referral ID:[id number] Provider Name:[facility] Address 1:[address] Address 2: City:[place] Selection Factors: State:[place] Patient Contact Information Contact Name:BELEM Relationship:Son Address: Work Phone: City: [place] [facility] Phone: [facility]/Zip Code: Email: Financial Information Financial Class:Medicare Primary Plan Desc:MEDICARE OUTPATIENT Primary Plan Number:[id number] Secondary Plan Desc:[employer] INSURANCE Secondary Plan Number:[id number] Assessment Information LACE LACE Length of stay for Answers: 3 days current admission Acuity / Level of Answers: Yes Care: Did the patient have an inpatient admission? Comorbidities - select Answers: Dementia all that apply # of Emergency department Answers: 1-2 visits in the last 6 months Score: 10 Date Signed: 02/23/2019 03:35 PM Electronically Signed By:KARO Bruce [facility] CM Progress Note CM Note CM Note Notes: Patient admitted w abd pain. Imaging showed severe fecal impaction/constipation + a ureteral stone. She has severe dementia and lives at [facility]. Per her family (laurent Kent and son Oswaldo), she has chronic constipation issues. She is also minimally communicative at baseline. Her MOST form indicates a desire for mostly comfort measures and some medications. The possibility of a ureteral stent was mentioned to family and they are hesitant to consider this, as well. Urology consult pending. Case Management will follow. Date Signed: 02/21/2019 10:55 AM Electronically Signed By:Marilyn Munroe RN Case Management Discharge Plan Note Case Management Discharge Discharge Order Complete? Answers: Yes Patient to Obtain Answers: Other Notes: [facility] Transportation Arranged Answers: Other Notes: [facility] will Pick (Date 02/23/2019 04:15 AM & Time) Faxed Final Orders Answers: Yes Agency/Facility Transfer Answers: Yes Report Printed & Faxed to Receiving Agency Family Notified Answers: Yes Discharge Comments Notes: Pt is discharging to [facility] today. D/C order, meds, facility transfer sent via [employer]. [facility]. Date Signed: 02/23/2019 03:34 PM Electronically Signed By:KARO Bruce Intervention Information Intervention Type:*Incorrect Registration Date of Service:02/20/2019 07:29 PM Patient Type:Inpatient Staff Member:WINSOME Kramer Courtney Hours: Discipline: Severity: Comment:
== END 2019-02-23 16:24 | DRG 694 ==
LOC: OBSVTOIN 18:30 → F1N 19:33
PROVIDERS: ADMIT Internal Medicine; ATTEND Internal Medicine
DX: N13.2 Hydronephrosis with renal and ureteral calculous obstruction (principal); N17.9 Acute kidney failure, unspecified; K59.09 Other constipation; F03.90 Unspecified dementia, unspecified severity, without behavioral disturbance, psychotic disturbance, mood disturbance, and anxiety; E86.9 Volume depletion, unspecified; E03.9 Hypothyroidism, unspecified; Z66 Do not resuscitate
CPT/HCPCS: 96374; 97116-GP; 97163-GP; J0690; J1100; J1170; J2060; J2250; J2405; J2704; J3010; Q9966; Q9967